=== PATIENT | male | born 1945 | race Caucasian/White ===

== ENCOUNTER 2020-11-19 18:00 | Inpatient (IN) | payer OTHER, SELFPAY ==
[~2020-11-19] VITALS: Ht 182.9 cm; Wt 80.3 kg
[2020-11-19 18:00] VITALS: BP_SYST 140
--- NOTE | 2020-11-19 18:04 | NUR ---
Patient to ER bed 04 to gown for evaluation. Side rails up.
--- NOTE | 2020-11-19 18:15 | NUR ---
PT BIBA FROM HOME, PT STATES THAT HE HAS HAD UNSTEADY GAIT AT HOME. STATES HE WAS HOSPITALIZED AT [facility] FOR STOKE LIKE SYMPOMS THIS PAST WEDNESDAY, HOWEVER WAS DISCHARGED AND TOLD TO GET A FOLLOW-UP MRI. PT'S FAMILY CALLED FOR AN AMBULANCE TONIGHT DUE TO WALKING UNSTEADILY. PT DENIES DIZZINESS, NO FACIAL DROOP OR WEAKNESS. PT IS SPEAKING IN COMPLETE SENTENCES. 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 PT IS AAOX4, V/S STABLE, NO DISTRESS
--- NOTE | 2020-11-19 19:07 | NUR ---
ER Dr. SWANSON at bedside examining patient.
--- NOTE | 2020-11-19 19:22 | NUR ---
Report received from NICKY Lutz for continuation of care.
--- NOTE | 2020-11-19 19:30 | NUR ---
Assumed total care of patient. Patient AAO x4 from home c/o difficulty walking since wednesday. Patient was seen at [facility] on Wednesday and diagnosed with a TIA. Patient NIH of 0. Denies any new symptoms since Wednesday. Patient sensory, motor, and speech in tact. Patient placed on monitor technician, VSS, breathing even and unlabored, no signs of acute distress noted. Patient denies nausea, vomiting, chest pain, SOB, difficulty speaking. Will continue to monitor.
--- NOTE | 2020-11-19 19:34 | NUR ---
# 20 gauge angiocath placed to LEFT AC. Use of asceptic technique. Opsite placed over site. Blood return noted. Blood for lab drawn from site. Flushed with 10 cc of normal saline. No evidence of infiltration noted. Patient tolerated well.
--- NOTE | 2020-11-19 19:36 | NUR ---
Radiology at bedside for chest xray.
--- NOTE | 2020-11-19 19:45 | NUR ---
Covid swab collected and sent to lab.
--- NOTE | 2020-11-19 19:46 | NUR ---
Patient transported to radiology via wheelchair, accompanied by tech.
--- NOTE | 2020-11-19 19:53 | NUR ---
Returned from radiology, back to [facility]. NIH scale of 0. No signs of acute distress noted.
[2020-11-19 19:58] LABS: ANION GAP 9 (5-15); CALCIUM 9.2 mg/dL (8.4-11.0); CHLORIDE 106 mmol/L (98-107); CREATININE 1.61 mg/dL (0.55-1.30); GLUCOSE 154 mg/dL (70-99); POTASSIUM 3.3 mmol/L (3.5-5.1); SODIUM SERUM 142 mmol/L (136-145); UREA NITROGEN, BLOOD 35 mg/dL (8-21)
[2020-11-19 20:07] LABS: INR 0.9 (0.80-1.20); PROTHROMBIN TIME 9.8 SECS (9.5-12.5)
[2020-11-19 20:10] LABS: BASOPHILS # (AUTO) 0.1 K/uL (0.0-0.2); BASOPHILS % (AUTO) 0.8 % (0.0-2.0); EOSINOPHILS # (AUTO) 0.1 K/uL (0.0-0.4); EOSINOPHILS % (AUTO) 0.8 % (0.0-4.0); HEMATOCRIT 40.5 % (36-54); HEMOGLOBIN 13.8 g/dL (14.0-18.0); LYMPHOCYTES # (AUTO) 1.4 K/uL (1.0-5.5); MEAN CORPUSCULAR HEMOGLOBIN 31 pg (27-31); MEAN CORPUSCULAR HGB CONC 34 % (32-36); MEAN CORPUSCULAR VOLUME 92 fL (79.0-98.0); MONOCYTES # (AUTO) 0.6 K/uL (0.0-1.0); MONOCYTES % (AUTO) 7.7 % (1.7-9.3); NEUTROPHILS % (AUTO) 73.7 % (40.0-70.0); PLATELET COUNT (AUTO) 189 K/uL (130-430); RED BLOOD CELL COUNT(AUTO) 4.41 MIL/uL (4.2-6.2); RED CELL DISTRIBUTION WIDTH 13.8 % (9.0-15.0); WHITE BLOOD COUNT (AUTO) 8.1 K/uL (4.8-10.8)
[2020-11-19 20:15] LABS: ALANINE AMINOTRANSFERASE 34 U/L (12-78); ALBUMIN 3.8 g/dL (3.4-4.8); ASPARTATE AMINOTRANSFERASE 22 U/L (10-37); TOTAL BILIRUBIN 0.4 mg/dL (0.0-1.0)
--- NOTE | 2020-11-19 20:23 | NUR ---
Tech at bedside to perform EKG.
[2020-11-19] MEDS ORDERED: ASPIRIN 325 MG TABLET PO ONE (21:00)
--- NOTE | 2020-11-19 21:14 | NUR ---
Patient ambulated to restroom with steady gait. Patient able to give urine sample. UA collected and sent to lab.
--- NOTE | 2020-11-19 21:38 | NUR ---
Patient's code status is FULL CODE paperwork completed and placed in chart.
--- NOTE | 2020-11-19 21:44 | NUR ---
Patient will be admitted to care of Dr. Hatfield. Admitted to TELE unit. Will be an ER HOLD. Belongings list completed. Complete and up to date summary report printed. SBAR report to be given at bedside with opportunity for questions.
[2020-11-19] MEDS ORDERED: LIP40 PO (22:20)
[2020-11-19] MEDS ORDERED: COR12.5 PO (22:20)
[2020-11-19] MEDS ORDERED: ASPI-1155 PO (22:20)
[2020-11-19] MEDS ORDERED: CYAN250010 PO (22:20)
--- NOTE | 2020-11-19 22:20 | NUR ---
Medication reconciliation completed with information provided by pt at the bedside. Any prior medication reconciliation on file was reviewed and corrected.
[2020-11-19 22:24] LABS: BILIRUBIN,URINE NEGATIVE (NEGATIVE); BLOOD, URINE NEGATIVE (NEGATIVE); CLARITY/URINE SL CLOUDY (CLEAR); COLOR,URINE YELLOW (YELLOW); GLUCOSE,URINE NEGATIVE (NEGATIVE); KETONES,URINE NEGATIVE (NEGATIVE); LEUKOCYTE ESTERASE ,URINE 2+ (NEGATIVE); NITRITE, URINE POSITIVE (NEGATIVE); PROTEIN URINE NEGATIVE (NEGATIVE); UROBILINOGEN,URINE 0.2 (0.2-1.0)
[2020-11-19] MEDS ORDERED: ACETAMINOPHEN 325 MG TABLET PO PRN (22:30)
[2020-11-19] MEDS ORDERED: ONDANSETRON HCL 4 MG/2 ML VIAL IVP PRN (22:30)
[2020-11-19] MEDS ORDERED: LORazepam 2 MG/ML VIAL IVP PRN (22:30)
[2020-11-19] MEDS ORDERED: NALOXONE HCL 0.4 MG/ML AMP (NARCAN) IVP PRN ×2 (22:30)
[2020-11-19] MEDS ORDERED: HYDROcodone/ACETAMIN 10-325 MG TAB PO PRN (22:30)
[2020-11-19] MEDS ORDERED: HYDROcodone/ACETAMIN 5-325 MG TAB (NORCO/ VICODIN) PO PRN (22:30)
--- NOTE | 2020-11-19 22:40 | NUR ---
Patient transferred onto hospital bed with clean linen. Patient resting comfortably. No signs of acute distress. Will continue to monitor.
[2020-11-19 22:47] LABS: BARBITURATE, URINE NEGATIVE (NEG <=200); URINE AMPHETAMINE NEGATIVE (NEG <=500)
[2020-11-19 22:48] LABS: BENZODIAZEPINE, URINE NEGATIVE (NEG <=150); CANNABINOID, URINE NEGATIVE (NEG <=50); COCAINE, URINE NEGATIVE (NEG <=150); METHAMPHETAMINES SCREEN,URINE NEGATIVE (NEG <=500); OPIATE, URINE NEGATIVE (NEG <=100); PHENCYCLIDINE SCREEN,URINE NEGATIVE (NEG <=25); UR TRICYCLIC ANTIDEPRESSANTS NEGATIVE (NEG <=300); URINE METHADONE NEGATIVE (NEG <=200); URINE OXYCODONE SCREEN NEGATIVE (NEG <=100); URINE PROPOXYPHENE SCREEN NEGATIVE (NEG <=300)
--- NOTE | 2020-11-19 23:25 | NUR ---
Patient given food to eat. Patient tolerated well.
[2020-11-19 23:49] LABS: BACTERIA,URINE MANY /HPF (None Seen); RBC,URINE 0-3 /HPF (0-3); WBC,URINE 20-50 /HPF (0-3)
--- NOTE | 2020-11-20 00:33 | NUR ---
Patient resting quietly. No acute distress noted. Vital signs within normal range. Will continue to monitor.
--- NOTE | 2020-11-20 01:33 | NUR ---
Patient resting quietly. No acute distress noted. Vital signs within normal range. Will continue to monitor.
--- NOTE | 2020-11-20 02:14 | NUR ---
Patient resting quietly. No acute distress noted. Will continue to monitor.
--- NOTE | 2020-11-20 03:18 | NUR ---
Patient resting quietly. No acute distress noted. Vital signs within normal range.
--- NOTE | 2020-11-20 05:48 | NUR ---
Patient resting quietly. No acute distress noted. Vital signs within normal range.
--- NOTE | 2020-11-20 06:25 | NUR ---
Lab at bedside for AM blood draw
--- NOTE | 2020-11-20 06:29 | NUR ---
Ultrasound at bedside
--- NOTE | 2020-11-20 07:21 | NUR ---
Report given to NICKY Rosales for continuation of care.
[2020-11-20 07:45] LABS: BASOPHILS # (AUTO) 0.1 K/uL (0.0-0.2); EOSINOPHILS # (AUTO) 0.1 K/uL (0.0-0.4); EOSINOPHILS % (AUTO) 1.1 % (0.0-4.0); HEMATOCRIT 42.1 % (36-54); HEMOGLOBIN 14.3 g/dL (14.0-18.0); LYMPHOCYTES # (AUTO) 1.5 K/uL (1.0-5.5); LYMPHOCYTES % (AUTO) 18.5 % (20.5-51.5); MEAN CORPUSCULAR HEMOGLOBIN 31 pg (27-31); MEAN CORPUSCULAR HGB CONC 34 % (32-36); MEAN CORPUSCULAR VOLUME 91 fL (79.0-98.0); MONOCYTES # (AUTO) 0.7 K/uL (0.0-1.0); MONOCYTES % (AUTO) 8.5 % (1.7-9.3); NEUTROPHILS # (AUTO) 5.6 K/uL (1.8-7.7); NEUTROPHILS % (AUTO) 70.9 % (40.0-70.0); PLATELET COUNT (AUTO) 181 K/uL (130-430); RED BLOOD CELL COUNT(AUTO) 4.62 MIL/uL (4.2-6.2); RED CELL DISTRIBUTION WIDTH 13.6 % (9.0-15.0); WHITE BLOOD COUNT (AUTO) 7.9 K/uL (4.8-10.8)
--- NOTE | 2020-11-20 08:00 | NUR ---
breakfast tray given POC reviewed, pt. comfortable no request
[2020-11-20 08:02] LABS: ANION GAP 8 (5-15); CHLORIDE 105 mmol/L (98-107); CREATININE 1.45 mg/dL (0.55-1.30); GLUCOSE 114 mg/dL (70-99); PHOSPHORUS 3.8 mg/dL (2.7-4.5); POTASSIUM 3.8 mmol/L (3.5-5.1); SODIUM SERUM 142 mmol/L (136-145); UREA NITROGEN, BLOOD 34 mg/dL (8-21)
--- NOTE | 2020-11-20 09:04 | NUR ---
phone update to family, awaiting MRI
[2020-11-20] MEDS: ASPIRIN 81 MG TAB.CHEW PO SCH (10:08)
[2020-11-20] MEDS: CARVEDILOL 12.5 MG TABLET (COREG) PO SCH ×2 (10:09→20:15)
[2020-11-20] MEDS: CYANOCOBALAMIN 1000 mCg TABLET PO SCH (10:10)
[2020-11-20] MEDS: ATORVASTATIN 20 MG TABLET PO SCH (10:19)
--- NOTE | 2020-11-20 11:00 | NUR ---
Patient will be admitted to care of [facility]. Admitted to tele unit. Will go to room 116B. Belongings list completed. Complete and up to date summary report printed. SBAR report given at bedside to Clemencia opportunity for questions.
--- NOTE | 2020-11-20 11:06 | NUR ---
CONSULTATION PAGED REASON FOR CONSULTATION:TIA/CVA WAS CONSULT CALED?Y PERSON WHO WAS NOTIFIED:YARY CONSULTING PHYSICIAN:CHELA SEQUEIRA FREIGHT ASSOCIATE SPECIALTY:CARDIO FREIGHT ASSOCIATE PHONE NUMBER:[phone] REQUESTING PHYSICIAN:ROSELYN SEQUEIRA
--- NOTE | 2020-11-20 11:09 | NUR ---
CONSULTATION PAGED REASON FOR CONSULTATION:TIA WAS CONSULT CALED?Y PERSON WHO WAS NOTIFIED:TEXT MESSAGED CONSULTING PHYSICIAN:LEANDRO WARD CONSUMER INSIGHT MANAGER SPECIALTY:NEURO CONSUMER INSIGHT MANAGER PHONE NUMBER:[phone] REQUESTING PHYSICIAN:ROSELYN SEQUEIRA
[2020-11-20 11:54] VITALS: BP_SYST 120
[2020-11-20 12:00] VITALS: BP_SYST 110
--- NOTE | 2020-11-20 12:00 | NUR ---
Patient admitted to unit, recieved report from ramon at bedside, patient ambulates on a steady gate, no s/s of distress, no pain at this time, belongings reviewed with patient and accurate. iv in 20 gauge R AC intact patent, performed stroke assessment and patient scored a 0, no s/s of stroke based on the NIHSS, MRI of head ordered, MRI checklist completed in ER, no complaints at this time, tele box placed, normal sinus rhythm, will continue to monitor.
[2020-11-20 16:00] VITALS: BP_SYST 119
--- NOTE | 2020-11-20 16:23 | NUR ---
NOTED DISCHARGE ORDER WAS MADE PENDING CARDIOLOGY, NEPHROLOGY, AND NEURO CONSULT CLEARANCE. NEPHROLOGY CONSULT WITH DR CHAN STATES HE WANTS TO MONITOR PATIENTS MORNING LABS. NEURO CONSULT HAS NOT YET BEEN COMPLETED.
--- NOTE | 2020-11-20 18:11 | NUR ---
patient sitting at bedside eating dinner, no complaints or s/s of distress at this time, tolerating care, neuro consultation has still not be completed, will continue to follow up .
[2020-11-20 20:00] VITALS: BP_SYST 135
--- NOTE | 2020-11-20 20:00 | NUR ---
INITIAL NOTES: PT IS ALERT AND ORIENTED ; NOT IN ANY ACUTE DISTRESS; VITALS ARE STABLE ASSESSMENT COMPLETED ; NIH SCORE IS 0 AT THIS TIME , NO DEFICIT NOTICED AT THIS TIME, GAYLE UPPER AND LOWER EXTREMITIES ARE STRONG ,NO WEAKNESS NOTICED AT THIS TIME ; DR SONI MADE ROUNDS , PER REPORT , DR CHAN DIDN'T CLEAR PT FOR DISCHARGE , AND CARDIO DIDN'T SEE PT YET .BED IN LOW AND LOCK POSITION , CALL PIMENTEL IN REACH ; ENCOURAGED PT TO CALL FOR ASSIST . TELE RUNNING SR/ SB HR IS 60 AT THIS TIME GOES DOWN TO 59 . WILL CONTINUE TO MONITOR PT .
--- NOTE | 2020-11-20 20:15 | NUR ---
MEDICATION: DUE MEDS GIVEN PER ORDER AFTER EDUCATION . WILL CONTINUE TO MONITOR PT . ENCOURAGED PT TO CALL FOR ASSIST .
--- NOTE | 2020-11-20 23:32 | NUR ---
RN NOTES: PT IS SLEEPING , NOT IN ANY ACUTE DISTRESS; RESPIRATION IS EVEN AND NON LABORED . WILL CONTINUE TO MONITOR PT .
[2020-11-21 00:20] VITALS: BP_SYST 103
--- NOTE | 2020-11-21 02:53 | NUR ---
RN NOTES: PT IS SLEEPING , NOT IN ANY ACUTE DISTRESS; RESPIRATION IS EVEN AND NON LABORED ; WILL CONTINUE TO MONITOR PT .
--- NOTE | 2020-11-21 04:10 | NUR ---
RN ROUNDS: PT IS AWAKE, STATED HE USED THE RESTROOM ALREADY ; ENCOURAGED PT TO CALL FOR ASSIST ; WILL CONTINUE TO MONITOR PT .
[2020-11-21 06:24] LABS: BASOPHILS # (AUTO) 0.1 K/uL (0.0-0.2); EOSINOPHILS # (AUTO) 0.1 K/uL (0.0-0.4); EOSINOPHILS % (AUTO) 1.3 % (0.0-4.0); HEMATOCRIT 38.9 % (36-54); HEMOGLOBIN 13.3 g/dL (14.0-18.0); LYMPHOCYTES # (AUTO) 1.6 K/uL (1.0-5.5); LYMPHOCYTES % (AUTO) 22.4 % (20.5-51.5); MEAN CORPUSCULAR HEMOGLOBIN 31 pg (27-31); MEAN CORPUSCULAR HGB CONC 34 % (32-36); MEAN CORPUSCULAR VOLUME 91 fL (79.0-98.0); MONOCYTES # (AUTO) 0.7 K/uL (0.0-1.0); MONOCYTES % (AUTO) 9.7 % (1.7-9.3); NEUTROPHILS # (AUTO) 4.8 K/uL (1.8-7.7); NEUTROPHILS % (AUTO) 65.6 % (40.0-70.0); PLATELET COUNT (AUTO) 173 K/uL (130-430); RED BLOOD CELL COUNT(AUTO) 4.28 MIL/uL (4.2-6.2); RED CELL DISTRIBUTION WIDTH 13.7 % (9.0-15.0); WHITE BLOOD COUNT (AUTO) 7.4 K/uL (4.8-10.8)
[2020-11-21 06:54] LABS: ALANINE AMINOTRANSFERASE 24 U/L (12-78); ALBUMIN 3.5 g/dL (3.4-4.8); ANION GAP 7 (5-15); ASPARTATE AMINOTRANSFERASE 15 U/L (10-37); CALCIUM 9.3 mg/dL (8.4-11.0); CHLORIDE 107 mmol/L (98-107); CREATININE 1.43 mg/dL (0.55-1.30); GLUCOSE 89 mg/dL (70-99); POTASSIUM 3.6 mmol/L (3.5-5.1); SODIUM SERUM 142 mmol/L (136-145); TOTAL BILIRUBIN 0.5 mg/dL (0.0-1.0); UREA NITROGEN, BLOOD 35 mg/dL (8-21)
--- NOTE | 2020-11-21 07:25 | NUR ---
CLOSING NOTES: REPORT GIVEN TO RN AT BEDSIDE , PT IS AWAKE , WALKING AT BEDSIDE , NOT IN ANY ACUTE DISTRESS; ALL NEEDS ATTENDED ; PT SI COMFORTABLE .
[2020-11-21 08:00] VITALS: BP_SYST 137
--- NOTE | 2020-11-21 08:00 | NUR ---
OPENING NOTE PATIENT FOUND IN BED EATING BREAKFAST. VS OBTAINED AND PATIENT HAD NO COMPLAINTS OF PAIN OR DISCOMFORT. EXPLAINED PLAN OF CARE TO PATIENT. BED IS LOCKED AND IN LOWEST POSITION, RAILS UP AND CALL LIGHT IN REACH. WILL CONTINUE TO MONITOR.
[2020-11-21 09:24] LABS: CHOLESTEROL 142 mg/dL (<200); HDL CHOLESTEROL 47 mg/dL (>45); LDL CHOLESTEROL 86 mg/dL (<100); TRIGLYCERIDES 89 mg/dL (30-150)
[2020-11-21] MEDS: CARVEDILOL 12.5 MG TABLET (COREG) PO SCH (09:30)
[2020-11-21] MEDS: CYANOCOBALAMIN 1000 mCg TABLET PO SCH (09:30)
[2020-11-21] MEDS: ASPIRIN 81 MG TAB.CHEW PO SCH (09:30)
[2020-11-21] MEDS: ATORVASTATIN 20 MG TABLET PO SCH (09:34)
[2020-11-21 12:00] VITALS: BP_SYST 116
[2020-11-21 14:02] VITALS: BP_SYST 116
== END 2020-11-21 14:51 | disposition home or self-care (01) | DRG 64 ==
LOC: SED 18:00 → STU 21:38
PROVIDERS: ADMIT Preventive Medicine Preventive Medicine/Occupational Environmental Medicine; ATTEND Preventive Medicine Preventive Medicine/Occupational Environmental Medicine
DX: I63.81 Other cerebral infarction due to occlusion or stenosis of small artery (principal); N17.0 Acute kidney failure with tubular necrosis; E87.6 Hypokalemia; I11.0 Hypertensive heart disease with heart failure; I25.10 Atherosclerotic heart disease of native coronary artery without angina pectoris; I50.9 Heart failure, unspecified; R26.81 Unsteadiness on feet; R73.9 Hyperglycemia, unspecified; Z20.822 Contact with and (suspected) exposure to COVID-19; Z95.1 Presence of aortocoronary bypass graft; Z79.82 Long term (current) use of aspirin; Z79.899 Other long term (current) drug therapy; Z82.49 Family history of ischemic heart disease and other diseases of the circulatory system
CPT/HCPCS: 36415; 70450-TC; 70551; 71045; 76376; 76770; 80048; 80053; 80061; 80307; 81000; 83735; 84100; 84484; 85025; 85610-TC; 85730-TC; 87086; 93005; 93306; 93880; 99285; G0378